=== PATIENT | female | born 1965 | race American Indian/Alaskan Native ===

== ENCOUNTER 2017-04-22 13:50 | Emergency (ER) | payer SELFPAY ==
[2017-04-22 13:58] VITALS: BP 154/103
[2017-04-22] MEDS ORDERED: BENADRYL PO ONE ×2 (14:00)
== END 2017-04-22 14:36 | disposition left against medical advice (07) ==
LOC: ED 13:50
DX: R21 Rash and other nonspecific skin eruption (principal); Z53.21 Procedure and treatment not carried out due to patient leaving prior to being seen by health care provider